=== PATIENT | female | born 1985 | race African-American/Black ===

== ENCOUNTER → 2016-11-16 | Outpatient (CLI) | payer MEDICARE, OTHER ==
--- NOTE | 2016-11-16 11:15 | MR ---
Brain MR without contrast HISTORY: G 40.109, partial epilepsy, migraines Multiplanar multisequence imaging through the brain No comparisons There is no restricted diffusion. No hemorrhage or hydrocephalus. Brain signal is remarkable for some confluent hyperintensity in the periventricular white matter on T2 and inversion recovery sequence a t the level of the posterior horns of the lateral ventricles. 2 to 3 mm focus of hyperintensity also present in the left frontal lobe. The corpus callosum, pituitary, cervical medullary junction, cerebe llopontine angles are normal. Probable mucus retention cyst present in the left maxillary sinus. Ther e are normal vascular flow voids. The orbits show symmetric appearance. Temporal lobes show symmetric appearance, there is no atrophy. Signal is maintained. IMPRESSION: Nonspecific white matter demyelination could be related to migraine headaches. Correlate, follow-up as indicated. Additional findings above.
== END | disposition home or self-care (01) ==
LOC: RADMRIMAIN 09:02
PROVIDERS: ATTEND Psychiatry & Neurology Neurology
DX: G37.9 Demyelinating disease of central nervous system, unspecified (principal); R90.82 White matter disease, unspecified
CPT/HCPCS: 70551

== ENCOUNTER → 2017-02-11 | Outpatient (CLI) | payer MEDICARE, OTHER ==
--- NOTE | 2017-02-11 11:19 | USB ---
Reason for exam: clinical finding. History: Family history of breast cancer in grandmother. Took hormonal contraceptives for 3 months beginning at age 16. Indicated problem(s): palpable abnormality in the left breast. Physical Findings: Nurse Summary: 1cm movable at 12:30 (nurse brandi). US Breast LT Technologist: Gaby Marques Left breast ultrasound includes all four quadrants, the retroareolar region and axilla. Finding demonstrates a 0.8 x 0.3 x 0.5cm solid, hypoechoic, vascular lesion at 12 o'clock. This may represent a fibroadenoma or lactating adenoma for which a 6 month follow up is recommended. This is just adjacent to but separate from the 12:30 palpable site which seems to correspond to dense tissue. These results were verbally communicated with the patient and result sheet given to the patient on 02/11/17. ASSESSMENT: Probably benign, BI-RAD 3 RECOMMENDATION: Ultrasound of the left breast in 6 months.
== END | disposition home or self-care (01) ==
LOC: RADUSWWP 09:40
PROVIDERS: ATTEND Obstetrics & Gynecology
DX: N63.20 Unspecified lump in the left breast, unspecified quadrant (principal)

== ENCOUNTER 2017-02-19 16:41 | Emergency (ER) | payer MEDICARE, OTHER ==
[2017-02-19] MEDS ORDERED: diphenhydrAMINE 50 MG/ML 1 ML VIAL IVP STA (17:04)
[2017-02-19] MEDS ORDERED: ACETAMINOPHEN TAB 500 MG TAB PO STA (17:04)
[2017-02-19] MEDS ORDERED: SODIUM CHLORIDE 0.9% 1,000 ML IV ONE (17:05)
--- NOTE | 2017-02-19 17:07 | ED ---
Headache HPI - General Chief Complaint: Headache Stated Complaint: migraine(18 wks preg) Time Seen by Provider: 02/19/17 16:53 Source: RN notes reviewed, old records reviewed Mode of arrival: ambulatory Limitations: no limitations - History of Present Illness Initial Comments: This is a 31-year-old female presents emergency Department chief complaint of a migraine for 4 days. Patient reports that she is currently 18 weeks and this is first eighth . She states that she's tried some Tylenol over the past 2 days but nothing is helping. She has history of seizure disorder, takes Keppra and she has been taking her medicines. She reports that today she noticed occasional flashing lights and was concerned about this and decided she needed to come in to be evaluated. She reports she has a history of migraines and is usually cared with migraine cocktail Benadryl. Patient states that she is not taking any Benadryl any medicine at home besides Tylenol. Patient relates that she's had no fever or chills. Denies any neck or acute back pain. She reports that she's also had an episode of tripping falling and hit her abdomen on the edge of a chair. Patient states that she was somewhat sore around her abdomen and wants to check to make sure the baby is okay. Patient states that her PHARMACY INTERN is Dr. Ferrara in [place]. - Related Data Home Medications Medication Instructions Recorded Confirmed Vit No.124/Iron/Folic 1 tab PO DAILY 02/07/15 02/19/17 [ Vitamin Tablet] levETIRAcetam [Keppra] 500 mg PO BID 02/19/17 02/19/17 Previous Rx's Medication Instructions Recorded Nitrofurantoin Monohyd/M-Cryst 100 mg PO Q12HR #14 cap 02/19/17 [Macrobid] Allergies Allergy/AdvReac Type Severity Reaction Status Date / Time cephalexin monohydrate Allergy Severe sob,rash Verified 02/19/17 17:27 [From Keflex] Penicillins Allergy Severe sob,rash Verified 02/19/17 17:27 venom-honey bee Allergy Severe swelling,SO Verified 02/19/17 17:27 [bee venom (honey bee)] B Review of Systems ROS Statement: Those systems with pertinent positive or pertinent negative responses have been documented in the HPI. ROS Other: All systems not noted in ROS Statement are negative. Past Medical History Past Medical History: Asthma, Fibromyalgia, GERD/Reflux, Seizure Disorder Additional Past Medical History / Comment(s): neck/spine herniation, migraines, PAC's, varicose veins, degenerative disks,anemia History of Any Multi-Drug Resistant Organisms: MRSA Date of last positivie culture/infection: 2005 MDRO Source:: left breast Past Surgical History: Appendectomy Additional Past Surgical History / Comment(s): left ovarian cyst, left breast lumpectomy Past Anesthesia/Blood Transfusion Reactions: Motion Sickness Past Psychological History: Anxiety, Depression Smoking Status: Former smoker Past Alcohol Use History: None Reported Past Drug Use History: None Reported - Past Family History Mother Family Medical History: Hypertension, Seizure Disorder Daughter(s) Family Medical History: Seizure Disorder General Exam - General Exam Comments Initial Comments: Is a pleasant 31-year-old female. Patient is currently 18 weeks . Patient does not appear to be in any acute distress. Limitations: no limitations General appearance: alert, in no apparent distress Head exam: Present: atraumatic, normocephalic, normal inspection Eye exam: Present: normal appearance, PERRL, EOMI. Absent: scleral icterus, conjunctival injection, periorbital swelling ENT exam: Present: normal exam, mucous membranes moist Neck exam: Present: normal inspection Respiratory exam: Present: normal lung sounds bilaterally. Absent: respiratory distress, wheezes, rales, rhonchi, stridor Cardiovascular Exam: Present: regular rate, normal rhythm, normal heart sounds. Absent: systolic murmur, diastolic murmur, rubs, gallop, clicks GI/Abdominal exam: Present: soft, normal bowel sounds. Absent: distended, tenderness, guarding, rebound, rigid Extremities exam: Present: normal inspection, full ROM, normal capillary refill. Absent: tenderness, pedal edema, joint swelling, calf tenderness Back exam: Present: normal inspection Neurological exam: Present: alert, oriented X3, CN II-XII intact, normal gait Psychiatric exam: Present: normal affect. Absent: depressed Skin exam: Present: warm, dry, intact, normal color. Absent: rash Course Vital Signs 02/19/17 02/19/17 16:45 18:17 Temperature 98.5 F Pulse Rate 88 72 Respiratory 18 16 Rate Blood Pressure 111/79 132/75 O2 Sat by Pulse 100 100 Oximetry - Reevaluation(s) Reevaluation #1: 02/19/17 18:22 Patient was reevaluated and reports that her headache is somewhat diminished in the time. She still has not received magnesium sulfate. Reevaluation #2: 02/19/17 19:20 This patient was reevaluated and reports that her migraine has diminished. She is resting comfortably in bed. Patient reports that her headache is noted to 10. Medical Decision Making - Medical Decision Making 31-year-old female that is currently 18 weeks presents emergency Department chief complaint of a migraine headache for 4 days. Patient states that she's tried Tylenol and does not help. On emergency department CBC and CMP obtained. Both within normal limits. Patient was given IV fluids, started on magnesium citrate and Tylenol and Benadryl. Patient was reevaluated and her migraine is subsiding at this time. She is feeling better. She is neurologically intact. She has had a heart tones are 150. I discussed that her urinalysis did show some bacteriuria. She will be started on antibiotics pending culture will be obtained. Patient will be discharged at this time with close follow-up with her PHARMACY INTERN and primary care provider. Return parameters were discussed. - Lab Data Result diagrams: 02/19/17 17:55 02/19/17 17:55 Lab Results 02/19/17 02/19/17 02/19/17 Range/Units 17:55 17:55 18:56 WBC 6.1 (3.8-10.6) k/uL RBC 3.50 L (3.80-5.40) m/uL Hgb 11.2 L (11.4-16.0) gm/dL Hct 33.9 L (34.0-46.0) % MCV 96.6 (80.0-100.0) fL MCH 31.9 (25.0-35.0) pg MCHC 33.0 (31.0-37.0) g/dL RDW 13.6 (11.5-15.5) % Plt Count 236 (150-450) k/uL Neutrophils % 65 % Lymphocytes % 27 % Monocytes % 4 % Eosinophils % 2 % Basophils % 0 % Neutrophils # 4.0 (1.3-7.7) k/uL Lymphocytes # 1.6 (1.0-4.8) k/uL Monocytes # 0.2 (0-1.0) k/uL Eosinophils # 0.1 (0-0.7) k/uL Basophils # 0.0 (0-0.2) k/uL Sodium 135 L (137-145) mmol/L Potassium 3.7 (3.5-5.1) mmol/L Chloride 105 (98-107) mmol/L Carbon Dioxide 21 L (22-30) mmol/L Anion Gap 9 mmol/L BUN 13 (7-17) mg/dL Creatinine 0.50 L (0.52-1.04) mg/dL Est GFR (MDRD) Af Amer >60 (>60 ml/min/1.73 sqM) Est GFR (MDRD) Non-Af >60 (>60 ml/min/1.73 sqM) Glucose 80 (74-99) mg/dL Calcium 9.6 (8.4-10.2) mg/dL Magnesium 1.6 (1.6-2.3) mg/dL Urine Color Light Yellow Urine Appearance Cloudy H (Clear) Urine pH 7.0 (5.0-8.0) Ur Specific [place] 1.008 (1.001-1.035) Urine Protein Negative (Negative) Urine Glucose (UA) Negative (Negative) Urine Ketones Negative (Negative) Urine Blood Negative (Negative) Urine Nitrite Negative (Negative) Urine Bilirubin Negative (Negative) Urine Urobilinogen <2.0 (<2.0) mg/dL Ur Leukocyte Esterase Moderate H (Negative) Urine RBC <1 (0-5) /hpf Urine WBC 3 (0-5) /hpf Ur Squamous Epith Cells 4 (0-4) /hpf Urine Bacteria Moderate H (None) /hpf Urine Mucus Rare H (None) /hpf Disposition Clinical Impression: Migraine, Bacteriuria during Disposition: HOME SELF-CARE Condition: Good Instructions: Acute Headache (ED), Urinary Tract Infection in (ED) Additional Instructions: Advised to closely follow with primary care provider. Also follow-up with her PHARMACY INTERN. Return to the emergency department if any alarming signs or symptoms occur. Prescriptions: Nitrofurantoin Monohyd/M-Cryst [Macrobid] 100 mg PO Q12HR #14 cap Referrals: None,Stated [Primary Care Provider] - 1-2 days Gaby Faulkner MD [STAFF PHYSICIAN] - 1-2 days Time of Disposition: 19:22
[2017-02-19] MEDS ORDERED: SODIUM CHLORIDE 0.9% 1,000 ML IV SCH (17:15)
[2017-02-19] MEDS ORDERED: MAGNESIUM SULFATE-D5W PMX 1 GM in DEXTROSE/WATER 1 100ML.BAG IVPB ONE (17:35)
[2017-02-19 18:11] LABS: Basophils % (A) 0 %; CH 32.1; CHCM 33.4; Eosinophils # (A) 0.1 k/uL (0-0.7); Eosinophils % (A) 2 %; HCT 33.9 % (34.0-46.0); HDW 2.48; HGB 11.2 gm/dL (11.4-16.0); Luc # (Auto) 0.15; Luc % (Auto) 3; Lymphocytes # (A) 1.6 k/uL (1.0-4.8); Lymphocytes % (A) 27 %; MCH 31.9 pg (25.0-35.0); MCV 96.6 fL (80.0-100.0); Mean Platelet Volume 7.7; Monocytes # (A) 0.2 k/uL (0-1.0); Monocytes % (A) 4 %; Neutrophils % (A) 65 %; RDW 13.6 % (11.5-15.5); WBC 6.1 k/uL (3.8-10.6); WBC (Perox) 5.89
[2017-02-19 18:18] VITALS: PULSE 72
[2017-02-19 18:20] LABS: Anion Gap 9 mmol/L; Blood Urea Nitrogen 13 mg/dL (7-17); Calcium 9.6 mg/dL (8.4-10.2); Carbon Dioxide 21 mmol/L (22-30); Chloride 105 mmol/L (98-107); Glucose 80 mg/dL (74-99); Magnesium 1.6 mg/dL (1.6-2.3); Non-African American GFR(MDRD) >60 (>60 ml/min/1.73 sqM); Potassium 3.7 mmol/L (3.5-5.1); Sodium 135 mmol/L (137-145)
[2017-02-19 19:05] LABS: Appearance,Urine Cloudy (Clear); Bacteria,Urine Moderate /hpf; Bilirubin,Urine Negative (Negative); Glucose,Urine (UA) Negative (Negative); Ketones,Urine Negative (Negative); Leukocyte Esterase,Urine Moderate (Negative); Mucus,Urine Rare /hpf; Nitrite,Urine Negative (Negative); Particle Count 5587; Protein,Urine Negative (Negative); RBC,Urine <1 /hpf (0-5); Specific Gravity,Urine 1.008 (1.001-1.035); Squamous Epithelial Cell,Urine 4 /hpf (0-4); UA Billing (MACRO vs. MICRO) MICRO; Urobilinogen,Urine <2.0 mg/dL (<2.0); WBC,Urine 3 /hpf (0-5)
[2017-02-19 19:42] VITALS: BP 96/56; RESP 15; TEMP 97.5
== END 2017-02-19 19:48 | disposition home or self-care (01) ==
LOC: EC 16:41
DX: O99.352 Diseases of the nervous system complicating pregnancy, second trimester (principal); G43.909 Migraine, unspecified, not intractable, without status migrainosus; O23.90 Unspecified genitourinary tract infection in pregnancy, unspecified trimester; G40.909 Epilepsy, unspecified, not intractable, without status epilepticus; Z86.14 Personal history of Methicillin resistant Staphylococcus aureus infection; Z79.899 Other long term (current) drug therapy; Z88.1 Allergy status to other antibiotic agents; Z88.0 Allergy status to penicillin; Z91.030 Bee allergy status; Z87.891 Personal history of nicotine dependence; Z3A.18 18 weeks gestation of pregnancy; W01.198A Fall on same level from slipping, tripping and stumbling with subsequent striking against other object, initial encounter
CPT/HCPCS: 99284 ×2; 96365 ×2; 96375 ×2; 36415; 80048; 83735; 85025; 81001; J1200; J3475

== ENCOUNTER 2017-12-25 19:38 | Emergency (ER) | payer MEDICARE, OTHER ==
[2017-12-25 20:02] VITALS: BP 135/91; PULSE 69; RESP 16; TEMP 97.9
--- NOTE | 2017-12-25 21:45 | ED ---
Wound/Laceration HPI - General Chief Complaint: Wound/Laceration Stated Complaint: cut tip of thumb off Time Seen by Provider: 12/25/17 20:27 Source: patient, RN notes reviewed Mode of arrival: ambulatory - History of Present Illness Initial Comments: This a 32-year-old female with past history of epilepsy who presents today for chief complaint of laceration to the tip of left thumb. Patient states that she was cooking, and mincing garlic with a brand-new knife around 6 PM this evening. When she missed the piece across and cut the tip of her left thumb. 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 Presents emergency department about an hour later for possible sutures. Patient states her tetanus is up-to-date within the last 5 years. Patient denies any numbness, tingling, loss sensation, exposure of underlying structures, loss sensation or muscle weakness in the thumb. Patient denies any recent fever, chills, shortness of breath, chest pain, back pain, abdominal pain , nausea or vomiting, numbness or tingling, dysuria or hematuria, constipation or diarrhea, headaches or visual changes, or any other complaints. - Related Data Home Medications Medication Instructions Recorded Confirmed Vit No.124/Iron/Folic 1 tab PO DAILY 02/07/15 02/19/17 [ Vitamin Tablet] levETIRAcetam [Keppra] 500 mg PO BID 02/19/17 02/19/17 Previous Rx's Medication Instructions Recorded Nitrofurantoin Monohyd/M-Cryst 100 mg PO Q12HR #14 cap 02/19/17 [Macrobid] Clindamycin [Cleocin] 150 mg PO Q6H #28 capsule 03/28/17 Hydrocodone/Acetaminophen [[place] 1 each PO Q6HR PRN #20 tab 03/28/17 5-325] Ibuprofen [Motrin] 600 mg PO Q8HR PRN #20 tab 03/28/17 Allergies Allergy/AdvReac Type Severity Reaction Status Date / Time cephalexin monohydrate Allergy Severe sob,rash Verified 03/28/17 05:26 [From Keflex] Penicillins Allergy Severe sob,rash Verified 03/28/17 05:26 venom-honey bee Allergy Severe swelling,SO Verified 03/28/17 05:26 [bee venom (honey bee)] B Review of Systems ROS Statement: Those systems with pertinent positive or pertinent negative responses have been documented in the HPI. ROS Other: All systems not noted in ROS Statement are negative. Constitutional: Denies: as per HPI, chills ENT: Denies: ear pain, throat pain Respiratory: Denies: cough, dyspnea Cardiovascular: Denies: chest pain, palpitations Gastrointestinal: Denies: abdominal pain, nausea, vomiting Genitourinary: Denies: urgency, dysuria Musculoskeletal: Denies: back pain Skin: Denies: rash, lesions Neurological: Denies: headache, weakness Hematological/Lymphatic: Denies: easy bleeding Past Medical History Past Medical History: Asthma, Fibromyalgia, GERD/Reflux, Seizure Disorder Additional Past Medical History / Comment(s): neck/spine herniation, migraines, PAC's, varicose veins, degenerative disks,anemia History of Any Multi-Drug Resistant Organisms: MRSA Date of last positivie culture/infection: 2005 MDRO Source:: left breast Past Surgical History: Appendectomy Additional Past Surgical History / Comment(s): left ovarian cyst, left breast lumpectomy Past Anesthesia/Blood Transfusion Reactions: Motion Sickness Past Psychological History: Anxiety, Depression Smoking Status: Former smoker Past Alcohol Use History: None Reported Past Drug Use History: None Reported - Past Family History Mother Family Medical History: Hypertension, Seizure Disorder Daughter(s) Family Medical History: Seizure Disorder General Exam - General Exam Comments Initial Comments: General: The patient is awake and alert, in no distress, and does not appear acutely ill. Eye: Pupils are equal, round and reactive to light, extra-ocular movements are intact. No nystagmus. There is normal conjunctiva bilaterally. No signs of icterus. Cardiovascular: There is a regular rate and rhythm. No murmur, rub or gallop is appreciated. Respiratory: Lungs are clear to auscultation, respirations are non-labored, breath sounds are equal. No wheezes, stridor, rales, or rhonchi. Musculoskeletal: Normal ROM MCP, DIP and PIP joints of all 5 phalanxes of the hands equally bilaterally, with no tenderness and strength 5/5. Sensation intact. Pulses equal bilaterally 2+. Capillary refill less than 2 seconds Neurological: A&O x 3. CN II-XII intact, There are no obvious motor or sensory deficits. Coordination appears grossly intact. Speech is normal. Skin: Skin is warm and dry. 3/4 cm circular partial avulsion laceration with flap to the tip of the left thumb, very superficial in nature. No exposure of underlying structure or evidence of FB. Psychiatric: Cooperative, appropriate mood & affect, normal judgment. Course Vital Signs 12/25/17 19:57 Temperature 97.9 F Pulse Rate 69 Respiratory 16 Rate Blood Pressure 135/91 O2 Sat by Pulse 98 Oximetry Medical Decision Making - Medical Decision Making Laceration flap was approximated using 2, 5.0 sutures patient tolerated the procedure well. Sterile bandage applied. This is a very superficial avulsion, I have low suspicion for injury to underlying structures or fracture. I extensively irrigated explored the wound, there is no evidence of foreign body. Given history of injury by knife I feel that x-ray is not indicated at this time. Case is discussed in detail with Dr. Joel. At this time feel patient is stable for discharge with primary care follow-up one to days for wound check. Patient was educated on signs and symptoms of infection. And told to return if these arise. Patient is discharged in stable condition with instruction to return to ER in 7-10 days for suture removal. Pt agreed. d/c in stable condition. Disposition Clinical Impression: Avulsion of skin of left thumb Disposition: HOME SELF-CARE Condition: Good Instructions: Care For Your Stitches (ED), Finger Laceration (ED) Additional Instructions: Please follow-up with family doctor in the next 2 days for wound check. Please return to the emergency department for suture removal in 7-10 days. Please return to emergency room if the symptoms increase or worsen or for any other concerns, as discussed. Is patient prescribed a controlled substance at d/c from ED?: No Referrals: [facility] [Primary Care Provider] - 1-2 days Time of Disposition: 21:44
== END 2017-12-25 22:09 | disposition home or self-care (01) ==
LOC: EC 19:38
DX: S61.012A Laceration without foreign body of left thumb without damage to nail, initial encounter (principal); G40.909 Epilepsy, unspecified, not intractable, without status epilepticus; Z87.891 Personal history of nicotine dependence; Z79.899 Other long term (current) drug therapy; Z88.0 Allergy status to penicillin; Z88.1 Allergy status to other antibiotic agents; Z91.030 Bee allergy status; Z86.14 Personal history of Methicillin resistant Staphylococcus aureus infection; W26.0XXA Contact with knife, initial encounter; Y93.G9 Activity, other involving cooking and grilling; Y92.009 Unspecified place in unspecified non-institutional (private) residence as the place of occurrence of the external cause
CPT/HCPCS: 12001; 99282

== ENCOUNTER 2018-10-20 13:00 | Emergency (ER) | payer OTHER, MEDICARE ==
[2018-10-20 13:16] VITALS: RESP 18
[2018-10-20] MEDS ORDERED: SODIUM CHLORIDE 0.9% 1,000 ML IV STA (13:37)
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
[2018-10-20 14:44] LABS: Basophils % (A) 0 %; Eosinophils # (A) 0.1 k/uL (0-0.7); Eosinophils % (A) 2 %; HCT 26.7 % (34.0-46.0); HGB 8.6 gm/dL (11.4-16.0); Hypochromasia Slight; Lymphocytes # (A) 1.7 k/uL (1.0-4.8); Lymphocytes % (A) 32 %; MCH 31.4 pg (25.0-35.0); MCHC 32.2 g/dL (31.0-37.0); MCV 97.6 fL (80.0-100.0); Mean Platelet Volume 8.5; Monocytes # (A) 0.2 k/uL (0-1.0); Monocytes % (A) 3 %; Neutrophils # (A) 3.3 k/uL (1.3-7.7); Neutrophils % (A) 60 %; Platelet Count 274 k/uL (150-450); RBC 2.74 m/uL (3.80-5.40); RDW 13.4 % (11.5-15.5); WBC 5.5 k/uL (3.8-10.6)
[2018-10-20 14:46] LABS: Glucose,Whole Blood 73 mg/dL (75-99)
[2018-10-20 14:50] LABS: Appearance,Urine Cloudy (Clear); Bacteria,Urine Occasional /hpf; Bilirubin,Urine Negative (Negative); Blood,Urine Negative (Negative); Color,Urine Light Yellow; Glucose,Urine (UA) Negative (Negative); Ketones,Urine Negative (Negative); Leukocyte Esterase,Urine Small (Negative); Mucus,Urine Rare /hpf; Nitrite,Urine Negative (Negative); PH, Urine 7.5 (5.0-8.0); Protein,Urine Negative (Negative); RBC,Urine 1 /hpf (0-5); Specific Gravity,Urine 1.013 (1.001-1.035); Squamous Epithelial Cell,Urine 10 /hpf (0-4); Urobilinogen,Urine <2.0 mg/dL (<2.0); WBC,Urine 2 /hpf (0-5)
[2018-10-20 14:54] LABS: ALT 14 U/L (9-52); AST 18 U/L (14-36); African American GFR (CKD) >90 (>60 ml/min/1.73 sqM); Albumin 3.7 g/dL (3.5-5.0); Alkaline Phosphatase 95 U/L (38-126); Anion Gap 8 mmol/L; Blood Urea Nitrogen 6 mg/dL (7-17); Calcium 9.7 mg/dL (8.4-10.2); Carbon Dioxide 23 mmol/L (22-30); Chloride 106 mmol/L (98-107); Glucose 66 mg/dL (74-99); Potassium 4.2 mmol/L (3.5-5.1); Sodium 137 mmol/L (137-145); Total Bilirubin 0.4 mg/dL (0.2-1.3); Total Protein 6.6 g/dL (6.3-8.2)
[2018-10-20 14:56] LABS: INR 0.9 (<1.2); Partial Thromboplastin Time 23.8 sec (22.0-30.0); Prothrombin Time 9.4 sec (9.0-12.0)
[2018-10-20 17:40] LABS: Glucose,Whole Blood 103 mg/dL (75-99)
[2018-10-20 19:01] VITALS: BP 106/74; PULSE 90; TEMP 99.3
== END 2018-10-20 18:57 | disposition home or self-care (01) ==
LOC: EC 13:00
DX: O99.89 Other specified diseases and conditions complicating pregnancy, childbirth and the puerperium (principal); R55 Syncope and collapse; O62.9 Abnormality of forces of labor, unspecified; O99.013 Anemia complicating pregnancy, third trimester; O99.283 Endocrine, nutritional and metabolic diseases complicating pregnancy, third trimester; E16.2 Hypoglycemia, unspecified; R11.0 Nausea; Z87.891 Personal history of nicotine dependence; Z88.0 Allergy status to penicillin; Z88.1 Allergy status to other antibiotic agents; Z91.030 Bee allergy status; Z86.14 Personal history of Methicillin resistant Staphylococcus aureus infection; Z90.49 Acquired absence of other specified parts of digestive tract; Z98.890 Other specified postprocedural states; Z53.20 Procedure and treatment not carried out because of patient's decision for unspecified reasons; Z3A.38 38 weeks gestation of pregnancy; V43.52XA Car driver injured in collision with other type car in traffic accident, initial encounter; Y92.410 Unspecified street and highway as the place of occurrence of the external cause
CPT/HCPCS: 36415; 80053; 81001; 84484; 85025; 85610; 85730; 93005; 96360; 99284

== ENCOUNTER 2018-10-20 19:05 | Outpatient (CLI) | payer MEDICARE, OTHER ==
[2018-10-20 20:33] VITALS: BP 119/76; PULSE 79; RESP 16
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
== END 2018-10-20 19:45 | disposition home or self-care (01) ==
LOC: FBPOP 19:05
PROVIDERS: ATTEND Obstetrics & Gynecology
DX: O26.93 Pregnancy related conditions, unspecified, third trimester (principal); Z3A.37 37 weeks gestation of pregnancy
CPT/HCPCS: 59025; G0463; 99213

== ENCOUNTER 2019-11-11 23:31 | Emergency (ER) | payer MEDICARE, OTHER ==
[2019-11-11] MEDS ORDERED: ACET/COD 300 MG/30 MG STARTER PACK 6 TAB BTL PO STA (23:59)
--- NOTE | 2019-11-12 00:42 | XR ---
EXAMINATION TYPE: XR forearm RT DATE OF EXAM: 11/12/2019 COMPARISON: NONE HISTORY: Pain. Trauma. TECHNIQUE: 2 views FINDINGS: There is a nondisplaced fracture between middle and distal thirds of the ulna. I see no hussain dence of a radius fracture. The carpal bones are intact. Elbow joint appears intact. IMPRESSION: Nondisplaced ulna fracture.
--- NOTE | 2019-11-12 01:03 | ED ---
Upper Extremity HPI - General Chief Complaint: Extremity Injury, Upper Stated Complaint: Rt Arm Injury Time Seen by Provider: 11/11/19 23:47 Source: patient Mode of arrival: ambulatory Limitations: no limitations - History of Present Illness Initial Comments: 34-year-old feel presented for midforearm pain after fall. Patient states she slipped down one step catch herself with her right forearm. Patient states that she is significant pain or the ulnar mid aspect of her forearm. Patient denies any significant bruising she denies any lacerations she denies any injury to head chest or back or lower extremities. patient denies any numbness tingling or loss of sensation coolness or pallor of the extremity. patient is no additional complaints upon arrival patient appears well she appears uncomfortable when moving the right arm. patient is right-hand dominant. remainder of the systems negative - Related Data Home Medications Medication Instructions Recorded Confirmed Vit No.124/Iron/Folic 1 tab PO DAILY 02/07/15 10/20/18 [ Vitamin Tablet] Previous Rx's Medication Instructions Recorded Clindamycin [Cleocin] 450 mg PO TID 7 Days #21 cap 06/13/19 Allergies Allergy/AdvReac Type Severity Reaction Status Date / Time cephalexin monohydrate Allergy Severe sob,rash Verified 11/11/19 23:39 [From Keflex] Penicillins Allergy Severe sob,rash Verified 11/11/19 23:39 venom-honey bee Allergy Severe swelling,SO Verified 11/11/19 23:39 [bee venom (honey bee)] B lamotrigine [From Lamictal] AdvReac Rash/Hives Verified 11/11/19 23:39 Review of Systems ROS Statement: Those systems with pertinent positive or pertinent negative responses have been documented in the HPI. ROS Other: All systems not noted in ROS Statement are negative. Past Medical History Past Medical History: Asthma, Fibromyalgia, GERD/Reflux, Seizure Disorder Additional Past Medical History / Comment(s): neck/spine herniation, migraines, PAC's, varicose veins, degenerative disks,anemia History of Any Multi-Drug Resistant Organisms: MRSA Date of last positivie culture/infection: 2005 MDRO Source:: left breast Past Surgical History: Appendectomy Additional Past Surgical History / Comment(s): left ovarian cyst, left breast lumpectomy Past Anesthesia/Blood Transfusion Reactions: Motion Sickness Past Psychological History: Anxiety, Depression Smoking Status: Never smoker - Past Family History Mother Family Medical History: Hypertension, Seizure Disorder Daughter(s) Family Medical History: Seizure Disorder General Exam - General Exam Comments Initial Comments: General: The patient is awake and alert, in no distress Eye: +3 mm pupils are equal, round and reactive to light, extra-ocular movements are intact. No nystagmus. There is normal conjunctiva bilaterally. No signs of icterus. Cardiovascular: There is a regular rate and rhythm. No murmur, rub or gallop is appreciated. Respiratory: Lungs are clear to auscultation, respirations are non-labored, breath sounds are equal. No wheezes, stridor, rales, or rhonchi. Gastrointestinal: Soft, non-distended, non-tender abdomen without masses or organomegaly noted. There is no rebound or guarding present. Musculoskeletal: no swelling noted. pain midforearm, no bruising. no gross deformity. compartments are soft compressible. Normal ROM, no tenderness. Strength 5/5. Sensation intact. Radial pulses equal bilaterally 2+. No carpal tenderness, no scaphoid. Neurological: A&O x 3. CN II-XII intact grossly, There are no obvious motor or sensory deficits. Coordination appears grossly intact. Speech is normal. Skin: Skin is warm and dry and no rashes or lesions are noted. Psychiatric: Cooperative, appropriate mood & affect, normal judgment. Limitations: no limitations Course Vital Signs 11/11/19 23:35 Temperature 98.2 F Pulse Rate 74 Respiratory 16 Rate Blood Pressure 136/91 O2 Sat by Pulse 100 Oximetry Procedures - Orthopedic Splinting/Casting Injury #1 Side: right Upper Extremity Injury Location: long arm Upper Extremity Immobilizer: sugar tong splint, Emile wrap, synthetic pre-padded splint Medical Decision Making - Medical Decision Making 34yo female presenting today for cc of right forarm pain after fall. Ulnar mid shaft fracture, nondisplaced. splinted sugar tongue, in sling for comfort. No skin changes. compartments compressible. Neurovascular exam prior to and after splinting unchanged. Patient case discussed [facility] Dr. Joel who is agreeable to care plan and discharge. Disposition Clinical Impression: Fracture of right ulna, Fall Disposition: HOME SELF-CARE Condition: Good Instructions (If sedation given, give patient instructions): Arm Fracture in Adults (ED) Additional Instructions: Please use medication as discussed. Please follow-up with orthopedic surgery in 2-3 days. Please return to emergency room if the symptoms increase or worsen or for any other concerns. Is patient prescribed a controlled substance at d/c from ED?: No Referrals: None,Stated [Primary Care Provider] - 1-2 days Markie Godfrey DO [Doctor of Osteopathic Medicine] - 1-2 days Time of Disposition: 01:03
[2019-11-13 09:45] VITALS: BP 136/91; PULSE 74; RESP 16; TEMP 98.2
== END 2019-11-12 01:13 | disposition home or self-care (01) ==
LOC: EC 23:31
DX: S52.201A Unspecified fracture of shaft of right ulna, initial encounter for closed fracture (principal); Z88.0 Allergy status to penicillin; Z88.8 Allergy status to other drugs, medicaments and biological substances; Z91.030 Bee allergy status; Z86.14 Personal history of Methicillin resistant Staphylococcus aureus infection; W01.0XXA Fall on same level from slipping, tripping and stumbling without subsequent striking against object, initial encounter
CPT/HCPCS: 29105; 99283

== ENCOUNTER → 2020-03-07 | Outpatient (CLI) | payer MEDICARE, OTHER ==
[2020-03-07 18:07] LABS: D-Dimer 0.29 mg/L FEU (<0.60)
[2020-03-08 00:07] LABS: Calcium 9.6 mg/dL (8.7-10.3)
[2020-03-08 02:40] LABS: Cardiolipin Ab IgG Interp NEGATIVE (NEGATIVE); Cardiolipin Ab IgM Interp NEGATIVE (NEGATIVE); Cardiolipin IgA Antibody 0.5 U/mL; Cardiolipin IgM Antibody 0.8 U/mL
[2020-03-08 11:57] LABS: Protein C (Activity) 96 % (71-138)
[2020-03-08 12:07] LABS: Anti-Thrombin III Antigen 110 % (80 - 120)
[2020-03-08 14:08] LABS: APTT 44 Sec(s) (<43); APTT 1:1 Mix 42 Sec(s) (<43); Dilute Russell Viper Venom 31 Sec(s) (<44)
== END | disposition home or self-care (01) ==
LOC: LABWHC1 16:00
PROVIDERS: ATTEND Psychiatry & Neurology Pain Medicine
DX: Z51.81 Encounter for therapeutic drug level monitoring (principal); Z79.899 Other long term (current) drug therapy; Z82.3 Family history of stroke
CPT/HCPCS: 36415; 81240; 81291; 82306; 82310; 83090; 85301; 85303; 85306; 85379; 85384; 85613; 85670; 85730; 85732; 86147